=== PATIENT | female | born 1985 | race Caucasian/White ===

== ENCOUNTER 2020-05-15 03:11 | Emergency (ER) | payer OTHER ==
[~2020-05-15] VITALS: Ht 162.6 cm; Wt 131.5 kg
--- NOTE | 2020-05-15 03:31 | NUR ---
ERMD at bedside for MSE
--- NOTE | 2020-05-15 03:50 | NUR ---
Patient discharged to home in stable condition. Written and verbal after care instructions given by ERMNancy Campbell.
[2020-05-15 04:17] VITALS: BP 161/86
== END 2020-05-15 04:18 | disposition home or self-care (01) ==
LOC: ER 03:16
DX: K22.6 Gastro-esophageal laceration-hemorrhage syndrome (principal); M54.9 Dorsalgia, unspecified; E66.01 Morbid (severe) obesity due to excess calories; Z68.42 Body mass index [BMI] 45.0-49.9, adult
CPT/HCPCS: A4663